=== PATIENT | female | born 1985 | race Caucasian/White ===

== ENCOUNTER 2017-11-10 12:53 | Inpatient (IN) | payer MEDICAID, OTHER, SELFPAY ==
[2017-11-10 13:20] VITALS: BMI 25.0
--- NOTE | 2017-11-10 14:09 | PDOC.LDHP ---
Labor and Delivery H&P HPI: Patient of Dr Walker. Here for contractions. Was 3 cm at last check prior to today. HPI: 31 yo prior CS x 1 for NRFHTs, who has been cleared for TOLAC by her MD, here for possible contractions. No LOF, no VB. Good FM Review of systems: complete ROS done and as per HPI Current gestational age (weeks): 40 (0 days) Dating criteria: last menstrual period Grav: 2 Para: 1 Current complications: none Abnormal US findings: No Current medications: pre- vitamins Previous surgical history: low tranverse CS Allergies/Adverse Reactions: Allergies Allergy/AdvReac Type Severity Reaction Status Date / Time nitrofurantoin Allergy Rash Verified 11/10/17 13:21 [From Macrobid] Social history: none - Physical Exam Vital signs reviewed and normal: yes (BP 132/75) General: NAD Heart: RRR Lungs: CTAB Abdomen: gravid (EFW about 7 pounds) Extremeties: no edema FHT: category 1 - Vaginal Exam cm dilated: 3 Effacement: 75% Station: -1 - Assessment Latent labor at full term, for TOLAC - Plan Plan: observation in L&D (I have notified Dr Walker of patient status, awaiting confirmation. I will obs for now but may admit due to TOLAC desire. For now, labor obs for 2 hours.)
--- NOTE | 2017-11-10 15:55 | PDOC.EVN ---
Event Note - Event Note Event Note: At 1530, was called and pt cervix at /-1. We will admit her for Dr. Hinojosa for Dr. Walker. Patient discussed TOLAC and wants to proceed. Hx reviewed with known PPH last delivery requiring transfusion. We will type and cross.
[2017-11-10] MEDS ORDERED: Promethazine HCl 25 MG/ML VIAL IM PRN (15:56)
[2017-11-10] MEDS ORDERED: Butorphanol Tartrate 1 MG/ML VIAL SLOW IVP PRN (15:56)
[2017-11-10] MEDS ORDERED: HYDROcodone/Acetaminophen 5/325 mg Tablet PO PRN ×4 (15:56→20:28)
[2017-11-10] MEDS ORDERED: Lidocaine 1% (PF) 30 ML VIAL SC PRN (15:56)
[2017-11-10] MEDS ORDERED: Ibuprofen 800 MG TAB PO PRN (15:56)
[2017-11-10] MEDS ORDERED: Lactated Ringer's 1,000 ML IV SCH (16:00)
[2017-11-10 16:32] LABS: Hemoglobin 11.8 g/dL (12.0-16.0); Mean Corpuscular HGB CONC 32.7 g/dL (32.0-36.0); Mean Corpuscular Hemoglobin 28.9 pg (27.0-31.0); Mean Corpuscular Volume 88.5 fL (78.0-98.0); Mean Platelet Volume 7.4 fL (7.4-10.4); Platelet Count 206 thou/uL (130-400); RBC Distribution Width 13.9 % (11.5-14.5); Red Blood Cell (RBC) Count 4.07 mill/uL (4.20-5.40); White Blood Cell (WBC) Count 14.6 thou/uL (4.8-10.8)
[2017-11-10] MEDS ORDERED: Bupivacaine 0.5% 20 ML, fentaNYL Citrate/PF 400 MCG in Sodium Chloride 0.9% 72 ML EPIDURAL SCH (16:45)
[2017-11-10] MEDS ORDERED: Misoprostol 200 MCG TAB ONE (17:15)
[2017-11-10 17:18] LABS: Syphilis Antibody Nonreactive (Nonreactive); Syphilis Antibody Index 0.05 S/CO (<1.00 Non-Reactive)
[2017-11-10 17:19] LABS: HBSAg Index 0.17 S/CO (0-0.99); HIV (1/2) Antibody/Antigen Non-Reactive (NonReactive); HIV 1/2 INDEX 0.13 S/CO (<1.00); Hep B Surf Ag Non-Reactive S/CO (NonReactive)
[2017-11-10] MEDS ORDERED: Lidocaine 1% PF 5 ML VIAL ONE (17:30)
--- NOTE | 2017-11-10 17:46 | PDOC.OPDEL ---
OB Operative/Delivery Note Delivery Dr/Surgeon: Aaron Assist: n/a Pre-Delivery Diagnosis: active labor Procedure/Post Delivery Dx: vaginal delivery after CS Weeks gestation: 40 Anesthesia: local - Findings A Sex: male - 1 min: 9 - 5 min: 9 - Additional Findings/Plan Placenta delivered: spontaneous Repaired Obstetrical Laceration: 1st degree (repaired with 2-0 vicryl for hemostasis, right periurethral hemostatic) Estimated blood loss: 300cc, qbl pending Compilations/Other Findings: NC x 1, body cord x 1 Post delivery plan: routine recovery
[2017-11-10] MEDS: NS / Oxytocin 40 units/1000ml 1,000 ML IV PRN ×2 (18:13→19:05)
[2017-11-10] MEDS ORDERED: diphenhydrAMINE 25 MG CAP PO PRN (20:28)
[2017-11-10] MEDS ORDERED: NS / Oxytocin 40 units/1000ml 1,000 ML IV SCH (20:28)
[2017-11-10] MEDS ORDERED: Lanolin Ointment 7 GM TUBE TOP PRN (20:28)
[2017-11-10] MEDS ORDERED: Witch Hazel-Glycerin 1 EACH JAR TOP PRN (20:28)
[2017-11-10] MEDS ORDERED: Benzocaine/Menthol 20-0.5% 60 ML CAN TOP PRN (20:28)
[2017-11-10] MEDS ORDERED: Bisacodyl 10 MG SUPP PR PRN (20:28)
[2017-11-10] MEDS ORDERED: Ondansetron HCl/PF 4 MG/2 ML Vial IVP PRN (20:28)
[2017-11-10] MEDS ORDERED: Preparation H Ointment 28 GM TUBE PR PRN (20:28)
[2017-11-10] MEDS ORDERED: Milk Of Magnesia 30 ML UDCUP PO PRN (20:28)
[2017-11-10] MEDS: Docusate Calcium (SURFAK) 240 MG CAP PO SCH (21:11)
[2017-11-10] MEDS: Ibuprofen 800 MG TAB PO SCH (21:42)
[2017-11-11] MEDS: Ibuprofen 800 MG TAB PO SCH ×3 (05:12→20:50)
[2017-11-11] MEDS: Docusate Calcium (SURFAK) 240 MG CAP PO SCH ×2 (08:22→20:47)
[2017-11-11] MEDS: Ferrous Sulfate 325 MG TAB PO SCH ×2 (08:51→11:32)
[2017-11-11] MEDS: Prenatal Vitamin 1 TAB PO SCH (08:52)
[2017-11-11] MEDS ORDERED: Adacel (T-DAP) 0.5 ML VIAL IM ONE (09:00)
[2017-11-11] MEDS ORDERED: Cepastat Lozenges 1 LOZ PO PRN (10:18)
--- NOTE | 2017-11-11 10:18 | PDOC.PP ---
Post Progress Note Post Day #: 1 PO intake tolerated: yes Flatus: yes Ambulation: yes Vital Signs (12 hours) Temp Pulse Resp BP 11/11/17 07:30 97.6 F 86 18 11/11/17 07:25 97.6 F 86 18 120/69 11/11/17 03:00 98.4 F 65 18 124/74 11/10/17 22:48 98.2 F 79 20 127/63 Weight Weight 128 lb - Physical Examination General: NAD Cardiovascular: RRR Respiratory: non-labored breathing Abdominal: no distention, appropriately TTP Fundus firm & at: umb Skin: no rash Psychiatric: normal affect Result Diagrams: 11/10/17 16:25 Additional Labs: Post Labs Blood Type B NEGATIVE 11/10/17 16:24 Hep Bs Antigen Non-Reactive S/CO (NonReactive) 11/10/17 16:25 - Assessment/Plan PPD 1 s/p VSSAF Doing well lochia appropriate Hemorrhoids- sitz baths, ice packs, prep H, tucks wipes and dermaplast, stool softners. Rh pos RImm Cont PP care.
[2017-11-12] MEDS: Ibuprofen 800 MG TAB PO SCH (08:40)
[2017-11-12] MEDS: Ferrous Sulfate 325 MG TAB PO SCH (10:54)
[2017-11-12] MEDS: Prenatal Vitamin 1 TAB PO SCH (10:56)
[2017-11-12] MEDS: Docusate Calcium (SURFAK) 240 MG CAP PO SCH (10:56)
[2017-11-12 13:27] VITALS: BP 110/60; TEMP 98
== END 2017-11-12 15:15 | disposition home or self-care (01) | DRG 775 ==
LOC: L&D/OP 12:53 → L&D 15:40 → 3SW 20:07
PROVIDERS: ADMIT Student in an Organized Health Care Education/Training Program; ATTEND Student in an Organized Health Care Education/Training Program
PROC: 10E0XZZ Delivery of Products of Conception, External Approach (ICD-10-PCS; principal; 2017-11-10)
PROC: 0HQ9XZZ Repair Perineum Skin, External Approach (ICD-10-PCS; 2017-11-10)
DX: O34.211 Maternal care for low transverse scar from previous cesarean delivery (principal); Z3A.40 40 weeks gestation of pregnancy; Z37.0 Single live birth; O70.0 First degree perineal laceration during delivery; O69.81X0 Labor and delivery complicated by cord around neck, without compression, not applicable or unspecified
CPT/HCPCS: 36415; 85027; 85461; 86780; 86850; 86900; 86901; 87340; 87389; 90384; 96372; 99285; J2001; J3010; J3490; J7050